=== PATIENT | female | born 1980 | race Two or more races ===

== ENCOUNTER 2023-02-18 16:13 | Inpatient (IN) | payer BC ==
[~2023-02-18] VITALS: Ht 160 cm; Wt 49.0 kg
[2023-02-18] MEDS ORDERED: IV NS 0.9% 1,000 ML BAG IV ONE (17:30)
[2023-02-18] MEDS ORDERED: FAMOTIDINE/PF INJ 20 MG/2 ML VIAL IV ONE ×2 (17:30→18:17)
[2023-02-18] MEDS ORDERED: ONDANSETRON HCL/PF 4 MG/2 ML VIAL IVP ONE (17:30)
[2023-02-18 17:49] LABS: BASOPHILS % (AUTO) 0.2 % (0.0-2.0); EOSINOPHILS % (AUTO) 0.2 % (0.0-6.0); HEMATOCRIT 33 % (33-45); HEMOGLOBIN 10.8 g/dL (11.5-14.8); LYMPHOCYTES # (AUTO) 1.1 K/uL (0.8-4.8); LYMPHOCYTES % (AUTO) 22.9 % (20.0-44.0); MEAN CORPUSCULAR HGB CONC 33 g/dl (31.0-36.0); MEAN CORPUSCULAR VOLUME 89 fL (82-100); MONOCYTES # (AUTO) 0.3 K/uL (0.1-1.30); MONOCYTES % (AUTO) 5.3 % (2.0-12.0); NEUTROPHILS # (AUTO) 3.5 K/uL (1.8-8.9); NEUTROPHILS % (AUTO) 71.4 % (43.0-81.0); PLATELET COUNT (AUTO) 185 K/uL (150-450); RED BLOOD CELL COUNT(AUTO) 3.72 MIL/uL (4.0-5.2); WHITE BLOOD COUNT (AUTO) 4.9 K/uL (4.3-11.0)
[2023-02-18 18:05] LABS: ALBUMIN 3.8 g/dL (3.4-5.0); BILIRUBIN,DIRECT 0.2 mg/dL (0.0-0.2); BILIRUBIN,TOTAL 0.9 mg/dL (0.2-1.0); CALCIUM, SERUM 8.4 mg/dL (8.5-10.1); CREATININE 0.7 mg/dL (0.6-1.3); TOTAL PROTEIN, SERUM 7.7 g/dL (6.4-8.2)
[2023-02-18] MEDS ORDERED: ONDANSETRON HCL/PF 4 MG/2 ML VIAL ONE (18:17)
[2023-02-18 19:02] LABS: BILIRUBIN,URINE NEGATIVE (NEGATIVE); COLOR,URINE YELLOW (YELLOW); LEUKOCYTE ESTERASE ,URINE NEGATIVE (NEGATIVE); NITRITE, URINE NEGATIVE (NEGATIVE); PROTEIN,URINE NEGATIVE (NEGATIVE); UGLUCOSE NEGATIVE (NEGATIVE); UROBILINOGEN,URINE 0.2 EU/dL (0.2)
[2023-02-18] MEDS ORDERED: ACETAMINOPHEN 325 MG TABLET PO PRN (20:00)
[2023-02-18] MEDS ORDERED: IV NS 0.9% 1,000 ML IV SCH (20:00)
[2023-02-18] MEDS ORDERED: ONDANSETRON HCL/PF 4 MG/2 ML VIAL IVP PRN (20:00)
[2023-02-18 21:12] VITALS: BP 123/84; TEMP 99.5; O2SAT 100
[2023-02-18 23:39] LABS: HEMOGLOBIN 9.1 g/dL (11.5-14.8)
[2023-02-18] MEDS: PANTOPRAZOLE 40 MG VIAL IV SCH ×2 (23:48→23:49)
[2023-02-19] MEDS ORDERED: PIPERACI/TAZO 3.375GM/D5W 50ML PB IV ONE ×2 (00:52→05:44)
[2023-02-19] MEDS: ZOSYN IVPB 3.375 G in IV D5W 50ml IV SCH ×4 (01:08→17:53)
[2023-02-19 06:50] LABS: BASOPHILS % (AUTO) 0.4 % (0.0-2.0); EOSINOPHILS % (AUTO) 1.6 % (0.0-6.0); HEMATOCRIT 25 % (33-45); HEMOGLOBIN 8.3 g/dL (11.5-14.8); LYMPHOCYTES % (AUTO) 36.5 % (20.0-44.0); MEAN CORPUSCULAR HGB CONC 33 g/dl (31.0-36.0); MEAN CORPUSCULAR VOLUME 90 fL (82-100); MONOCYTES # (AUTO) 0.4 K/uL (0.1-1.30); NEUTROPHILS # (AUTO) 2.9 K/uL (1.8-8.9); NEUTROPHILS % (AUTO) 54.5 % (43.0-81.0); PLATELET COUNT (AUTO) 149 K/uL (150-450); RED BLOOD CELL COUNT(AUTO) 2.82 MIL/uL (4.0-5.2); WHITE BLOOD COUNT (AUTO) 5.3 K/uL (4.3-11.0)
[2023-02-19 07:11] LABS: BILIRUBIN,TOTAL 0.9 mg/dL (0.2-1.0); CREATININE 0.7 mg/dL (0.6-1.3); MAGNESIUM 1.6 mg/dL (1.8-2.4); PHOSPHORUS 3.3 mg/dL (2.5-4.9); TOTAL PROTEIN, SERUM 6.2 g/dL (6.4-8.2)
[2023-02-19] MEDS ORDERED: Magnesium 1GM/D5W 100ML PREMIX 100 ML IV SCH (09:00)
[2023-02-19] MEDS ORDERED: IV NS 0.9% 1,000 ML IV PRN (10:08)
[2023-02-19 12:18] VITALS: BP 106/76; TEMP 98.5; O2SAT 98
[2023-02-19 15:36] LABS: HEMOGLOBIN 7.9 g/dL (11.5-14.8)
[2023-02-19] MEDS: MORPHINE SULFATE INJ 2 MG/ML DISP.SYRIN IV PRN (15:45)
[2023-02-19 16:00] VITALS: BP 114/70; TEMP 98.5; O2SAT 100
[2023-02-19] MEDS: PANTOPRAZOLE 40 MG VIAL IV SCH (17:02)
[2023-02-19 19:00] VITALS: BP 116/74; TEMP 98.5
[2023-02-19] MEDS ORDERED: ENOXAPARIN SODIUM 40 MG/0.4 ML DISP.SYRIN SQ SCH (21:00)
[2023-02-19 22:12] LABS: HEMOGLOBIN 7.2 g/dL (11.5-14.8)
[2023-02-19 22:45] VITALS: BP 116/79; TEMP 98.5
[2023-02-19 23:04] VITALS: BP 112/70; TEMP 98.4
[2023-02-20] VITALS (9 sets, daily range): BP systolic 112–134; BP diastolic 61–92; TEMP 97.4–98.2; O2SAT 98–100
[2023-02-20] MEDS: ZOSYN IVPB 3.375 G in IV D5W 50ml IV SCH ×5 (01:07→23:59)
[2023-02-20 07:07] LABS: HEMOGLOBIN 8.4 g/dL (11.5-14.8)
[2023-02-20] MEDS ORDERED: BUPIVACAINE MPF 0.5% W/EPI INJ 30 ML VIAL ONE (09:35)
[2023-02-20] MEDS ORDERED: BACITRACIN ZINC OINT (15 GM) 15 GM TUBE TP ONE (09:35)
[2023-02-20] MEDS ORDERED: LIDOCAINE HCL/MPF 1% 30 ML VIAL IJ ONE (09:35)
[2023-02-20] MEDS: PANTOPRAZOLE 40 MG VIAL IV SCH ×2 (10:22→16:18)
[2023-02-20] MEDS ORDERED: FENTANYL PF 250MCG/5ML AMPUL ONE (10:56)
[2023-02-20] MEDS ORDERED: MIDAZOLAM HCL 2 MG/2ML VIAL ONE (10:57)
[2023-02-20] MEDS ORDERED: ROCURONIUM BROMIDE 50 MG/5 ML ONE (10:57)
[2023-02-20] MEDS ORDERED: HYDROMORPHONE INJ 2 MG/ML DISP.SYRIN ONE (10:57)
[2023-02-20] MEDS ORDERED: FAMOTIDINE/PF INJ 20 MG/2 ML VIAL IV ONE (10:57)
[2023-02-20] MEDS ORDERED: PHYTONADIONE INJ 10 MG/1 ML AMPUL ONE (12:27)
[2023-02-20] MEDS: IV LR 1000 ML 1,000 ML IV PRN (15:04)
[2023-02-20 15:24] LABS: HEMOGLOBIN 8.5 g/dL (11.5-14.8)
[2023-02-20] MEDS: ACETAMINOPHEN 325 MG TABLET PO SCH ×2 (16:18→23:59)
[2023-02-20] MEDS: CELECOXIB 100 MG CAPSULE PO SCH (16:18)
[2023-02-20] MEDS: GABAPENTIN 300 MG CAPSULE PO SCH ×2 (16:18→23:59)
[2023-02-20] MEDS: MORPHINE SULFATE INJ 2 MG/ML DISP.SYRIN IV PRN (21:03)
[2023-02-20 23:22] LABS: HEMOGLOBIN 7.7 g/dL (11.5-14.8)
[2023-02-21] VITALS (8 sets, daily range): BP systolic 107–139; BP diastolic 74–86; TEMP 98.3–99.2; O2SAT 100
[2023-02-21] MEDS: IV LR 1000 ML 1,000 ML IV PRN (04:05)
[2023-02-21] MEDS: CELECOXIB 100 MG CAPSULE PO SCH ×2 (04:05→16:12)
[2023-02-21] MEDS: ZOSYN IVPB 3.375 G in IV D5W 50ml IV SCH ×3 (05:49→17:57)
[2023-02-21 06:46] LABS: BASOPHILS % (AUTO) 0.2 % (0.0-2.0); HEMATOCRIT 26 % (33-45); HEMOGLOBIN 8.7 g/dL (11.5-14.8); LYMPHOCYTES # (AUTO) 1.6 K/uL (0.8-4.8); LYMPHOCYTES % (AUTO) 25.1 % (20.0-44.0); MEAN CORPUSCULAR HGB CONC 34 g/dl (31.0-36.0); MEAN CORPUSCULAR VOLUME 88 fL (82-100); MONOCYTES # (AUTO) 0.4 K/uL (0.1-1.30); MONOCYTES % (AUTO) 5.5 % (2.0-12.0); NEUTROPHILS # (AUTO) 4.4 K/uL (1.8-8.9); NEUTROPHILS % (AUTO) 68.2 % (43.0-81.0); PLATELET COUNT (AUTO) 138 K/uL (150-450); RED BLOOD CELL COUNT(AUTO) 2.92 MIL/uL (4.0-5.2); WHITE BLOOD COUNT (AUTO) 6.4 K/uL (4.3-11.0)
[2023-02-21 07:21] LABS: CALCIUM, SERUM 8.4 mg/dL (8.5-10.1); CREATININE 0.9 mg/dL (0.6-1.3); MAGNESIUM 1.8 mg/dL (1.8-2.4); PHOSPHORUS 3.9 mg/dL (2.5-4.9)
[2023-02-21] MEDS: PANTOPRAZOLE 40 MG VIAL IV SCH (08:19)
[2023-02-21] MEDS: GABAPENTIN 300 MG CAPSULE PO SCH ×2 (08:19→16:12)
[2023-02-21] MEDS: ACETAMINOPHEN 325 MG TABLET PO SCH ×2 (08:19→16:13)
[2023-02-21] MEDS: SUCRALFATE 1 G TABLET PO SCH ×3 (12:34→22:54)
[2023-02-21] MEDS: PANTOPRAZOLE 40 MG/PACK PACK GT SCH (17:11)
[2023-02-22 00:55] VITALS: BP 140/87; TEMP 98.5
[2023-02-22] MEDS: ACETAMINOPHEN 325 MG TABLET PO SCH ×3 (01:07→16:05)
[2023-02-22] MEDS: GABAPENTIN 300 MG CAPSULE PO SCH ×3 (01:08→16:04)
[2023-02-22] MEDS: ZOSYN IVPB 3.375 G in IV D5W 50ml IV SCH ×3 (01:12→13:44)
[2023-02-22] MEDS: IV LR 1000 ML 1,000 ML IV PRN (01:37)
[2023-02-22 03:26] LABS: BASOPHILS % (AUTO) 0.4 % (0.0-2.0); EOSINOPHILS % (AUTO) 2.7 % (0.0-6.0); HEMATOCRIT 24 % (33-45); HEMOGLOBIN 7.8 g/dL (11.5-14.8); LYMPHOCYTES # (AUTO) 1.2 K/uL (0.8-4.8); LYMPHOCYTES % (AUTO) 22.7 % (20.0-44.0); MEAN CORPUSCULAR HGB CONC 33 g/dl (31.0-36.0); MEAN CORPUSCULAR VOLUME 89 fL (82-100); MONOCYTES # (AUTO) 0.2 K/uL (0.1-1.30); MONOCYTES % (AUTO) 4.1 % (2.0-12.0); NEUTROPHILS # (AUTO) 3.6 K/uL (1.8-8.9); NEUTROPHILS % (AUTO) 70.1 % (43.0-81.0); PLATELET COUNT (AUTO) 91 K/uL (150-450); RED BLOOD CELL COUNT(AUTO) 2.65 MIL/uL (4.0-5.2); WHITE BLOOD COUNT (AUTO) 5.1 K/uL (4.3-11.0)
[2023-02-22 03:36] LABS: CALCIUM, SERUM 7.7 mg/dL (8.5-10.1); CREATININE 0.8 mg/dL (0.6-1.3); MAGNESIUM 1.5 mg/dL (1.8-2.4); PHOSPHORUS 2.8 mg/dL (2.5-4.9); POTASSIUM 3.2 mmol/L (3.5-5.1)
[2023-02-22] MEDS: CELECOXIB 100 MG CAPSULE PO SCH ×2 (04:34→16:05)
[2023-02-22 07:00] VITALS: BP 130/77; TEMP 98.5; O2SAT 99
[2023-02-22] MEDS: SUCRALFATE 1 G TABLET PO SCH ×2 (07:56→12:17)
[2023-02-22] MEDS: PANTOPRAZOLE 40 MG/PACK PACK GT SCH ×2 (08:13→16:05)
[2023-02-22] MEDS ORDERED: CELE100C PO (09:40)
[2023-02-22] MEDS ORDERED: SUCR1TAB31 PO (09:40)
[2023-02-22] MEDS ORDERED: PANT40TA2 PO (09:40)
[2023-02-22] MEDS ORDERED: GABA300C PO (09:40)
[2023-02-22] MEDS ORDERED: POTASSIUM CHLORIDE 20 MEQ POWDER PACKET PO ONE (10:00)
[2023-02-22] MEDS: Magnesium 1GM/D5W 100ML PREMIX 100 ML IV SCH ×2 (11:25→14:35)
== END 2023-02-22 16:25 | disposition home or self-care (01) | DRG 417 ==
LOC: ER 16:19 → MED 20:19
PROVIDERS: ADMIT Internal Medicine; ATTEND Internal Medicine
PROC: 30233N1 Transfusion of Nonautologous Red Blood Cells into Peripheral Vein, Percutaneous Approach (ICD-10-PCS; 2023-02-19)
PROC: 0FT44ZZ Resection of Gallbladder, Percutaneous Endoscopic Approach (ICD-10-PCS; principal; 2023-02-20)
PROC: 0DB48ZX Excision of Esophagogastric Junction, Via Natural or Artificial Opening Endoscopic, Diagnostic (ICD-10-PCS; 2023-02-20)
PROC: 0DB68ZX Excision of Stomach, Via Natural or Artificial Opening Endoscopic, Diagnostic (ICD-10-PCS; 2023-02-20)
DX: K81.0 Acute cholecystitis (principal); K29.71 Gastritis, unspecified, with bleeding; D62 Acute posthemorrhagic anemia; M35.1 Other overlap syndromes; K92.0 Hematemesis
CPT/HCPCS: 36415; 78226; 80048-TC; 80053-TC; 80076-TC; 83690-TC; 83735-TC; 84100-TC; 84702-TC; 84703-TC; 85025-TC; 85027-TC; 85610-TC; 85730-TC; 86850-TC; 87081-TC; 87086-TC; A4223; A6253; A6403; A9537; C9113; G0378; J0690; J1100; J1170; J1885; J2250; J2270; J2405; J2543; J2704; J2765; J3010; J3430; J3475; J3490; J7030; J7040; J7050; J7060; J7120; P9016